=== PATIENT | female | born 1965 | race Two or more races ===

== ENCOUNTER 2022-04-07 19:26 | Emergency (ER) | payer OTHER ==
[~2022-04-07] VITALS: Ht 157.5 cm; Wt 72.7 kg
[2022-04-07 19:56] VITALS: BP 123/66
[2022-04-07 20:45] LABS: Basophils # (auto) 0 10 ^3/uL (0-0.2); Basophils % (auto) 0.3 % (0.0-2.0); Eosinophils # (auto) 0 10 ^3/uL (0-0.8); Eosinophils % (auto) 0.8 % (0.0-7.0); Hematocrit 41.2 % (36.0-46.0); Hemoglobin 13.6 g/dL (12.2-16.2); Lymphocytes # (auto) 2.3 10 ^3/uL (0.4-5.4); Lymphocytes % (auto) 41.9 % (10.0-50.0); Mean Corpuscular Hemoglobin 31.3 pg (28.0-32.0); Mean Corpuscular Hgb Conc. 33.1 g/dL (32.0-36.0); Mean Corpuscular Volume 94.5 fL (80.0-100.0); Monocytes # (auto) 0.3 10 ^3/uL (0-1.3); Monocytes % (auto) 5.2 % (0.0-12.0); Neutrophils # (auto) 2.8 10 ^3/uL (1.6-8.6); Neutrophils % (auto) 51.8 % (37.0-80.0); Nucleated Red Blood Cells % 0.1 %; Red Blood Cells 4.36 10^6/uL (4.0-5.20); Red Cell Distribution Width 13.2 % (11.8-14.3); White Blood Cell 5.5 10^3/uL (4.4-10.8)
[2022-04-07 20:59] LABS: Albumin 3.6 g/dL (3.4-5.0); BUN/Creatinine Ratio 13.2; Calcium 8.9 mg/dL (8.5-10.1); Magnesium 2.3 mg/dL (1.6-2.6); Potassium 3.7 mmol/L (3.5-5.1)
[2022-04-07 21:02] LABS: Bilirubin, Total 0.7 mg/dL (0.2-1.0); Total Protein 7.3 g/dL (6.4-8.2)
[2022-04-07 21:07] LABS: INR 1.03 (0.9-1.15); Partial Thromboplastin Time 29.9 sec (24.6-33.4)
== END 2022-04-07 23:04 | disposition home or self-care (01) ==
LOC: ER 19:26 → EDBD 19:26 → ER 23:04
DX: R07.89 Other chest pain (principal); I10 Essential (primary) hypertension
CPT/HCPCS: 36415; 71045; 80053; 83735; 83880; 84484; 85025; 85610; 85730; 93005

== ENCOUNTER 2022-08-21 21:19 | Inpatient (IN) | payer OTHER ==
[~2022-08-21] VITALS: Ht 167.6 cm; Wt 85.7 kg
[2022-08-21 21:46] LABS: Basophils # (auto) 0 10 ^3/uL (0-0.2); Basophils % (auto) 0.8 % (0.0-2.0); Eosinophils # (auto) 0.2 10 ^3/uL (0-0.8); Eosinophils % (auto) 4.3 % (0.0-7.0); Hematocrit 39.8 % (36.0-46.0); Hemoglobin 13.3 g/dL (12.2-16.2); Lymphocytes # (auto) 2.1 10 ^3/uL (0.4-5.4); Mean Corpuscular Hemoglobin 31.2 pg (28.0-32.0); Mean Corpuscular Hgb Conc. 33.4 g/dL (32.0-36.0); Mean Corpuscular Volume 93.4 fL (80.0-100.0); Monocytes # (auto) 0.3 10 ^3/uL (0-1.3); Monocytes % (auto) 5.6 % (0.0-12.0); Neutrophils # (auto) 2.2 10 ^3/uL (1.6-8.6); Neutrophils % (auto) 45.3 % (37.0-80.0); Nucleated Red Blood Cells % 0.1 %; Red Blood Cells 4.26 10^6/uL (4.0-5.20); White Blood Cell 4.8 10^3/uL (4.4-10.8)
[2022-08-21 22:06] LABS: Albumin 3.7 g/dL (3.4-5.0); Calcium 8.6 mg/dL (8.5-10.1); INR 0.96 (0.9-1.15); Magnesium 2.6 mg/dL (1.6-2.6); Partial Thromboplastin Time 27.5 sec (24.6-33.4); Potassium 3.9 mmol/L (3.5-5.1)
[2022-08-21 22:09] LABS: BUN/Creatinine Ratio 21.2 (10.0-20.0); Bilirubin, Total 0.5 mg/dL (0.2-1.0); Total Protein 7.3 g/dL (6.4-8.2)
[2022-08-22 00:36] LABS: Urine Bacteria NONE SEEN /hpf (None Seen); Urine Blood Negative /uL (Negative); Urine Specific Gravity 1.016 (1.001-1.035); Urine WBC 1 /hpf (0 - 5)
[2022-08-22] MEDS ORDERED: NITROGLYCERIN 0.4 MG SL TAB SL PRN (02:00)
[2022-08-22] MEDS ORDERED: DOCUSATE SOD 100 MG CAP PO PRN (02:00)
[2022-08-22] MEDS ORDERED: hydrALAZINE HCL 20 MG/ML VL IV PRN (02:00)
[2022-08-22] MEDS ORDERED: HYDROcodone-ACET 5/325MG TAB PO PRN (02:00)
[2022-08-22] MEDS ORDERED: ACETAMINOPHEN 325 MG TAB PO PRN (02:00)
[2022-08-22] MEDS ORDERED: MORPHINE SULFATE INJ 2 MG/ml SYRG IV PRN (02:00)
[2022-08-22] MEDS ORDERED: ONDANSETRON HCL 4 MG/2 ML VIAL IV PRN (02:00)
[2022-08-22 06:03] LABS: Basophils # (auto) 0 10 ^3/uL (0-0.2); Basophils % (auto) 0.6 % (0.0-2.0); Eosinophils # (auto) 0.3 10 ^3/uL (0-0.8); Hematocrit 38.3 % (36.0-46.0); Lymphocytes # (auto) 2.5 10 ^3/uL (0.4-5.4); Lymphocytes % (auto) 49.2 % (10.0-50.0); Mean Corpuscular Hemoglobin 31.9 pg (28.0-32.0); Mean Corpuscular Volume 93.7 fL (80.0-100.0); Monocytes # (auto) 0.3 10 ^3/uL (0-1.3); Monocytes % (auto) 6.7 % (0.0-12.0); Neutrophils % (auto) 38.5 % (37.0-80.0); Nucleated Red Blood Cells % 0.2 %; Red Blood Cells 4.09 10^6/uL (4.0-5.20); Red Cell Distribution Width 12.8 % (11.8-14.3); White Blood Cell 5.1 10^3/uL (4.4-10.8)
[2022-08-22] MEDS: SODIUM CHLOR 0.9% PF (SALINE LOCK) 10ML VIAL/SYR IV SCH ×3 (06:08→21:44)
[2022-08-22 06:24] LABS: Albumin 3.3 g/dL (3.4-5.0); BUN/Creatinine Ratio 15.7 (10.0-20.0); Calcium 8.5 mg/dL (8.5-10.1); Potassium 4.4 mmol/L (3.5-5.1)
[2022-08-22 06:26] LABS: Bilirubin, Total 0.7 mg/dL (0.2-1.0); Total Protein 6.7 g/dL (6.4-8.2)
[2022-08-22] MEDS ORDERED: ADENOSINE 67 MG in GIVE UN-DILUTED 0 ML IV ONE (08:00)
[2022-08-22] MEDS: FAMOTIDINE (10MG/ML) 2ML VL IV SCH (10:07)
[2022-08-22] MEDS: ASPirin 81 mg TAB PO SCH (10:07)
[2022-08-22 13:30] VITALS: BP 122/82
[2022-08-22] MEDS ORDERED: NITR0.4S29 SL (15:48)
[2022-08-22] MEDS ORDERED: LOSA25TA15 PO (15:48)
[2022-08-22] MEDS ORDERED: ASPI-543 PO (15:48)
[2022-08-22] MEDS ORDERED: PENI500T2 PO (15:48)
[2022-08-22 16:00] VITALS: BP 138/87
[2022-08-22 22:00] VITALS: BP 125/70
[2022-08-22] MEDS ORDERED: ATORVASTATIN 20 MG TAB PO SCH (22:00)
[2022-08-23 05:00] VITALS: BP 96/63
[2022-08-23 05:54] LABS: Albumin 3.2 g/dL (3.4-5.0); Calcium 8.7 mg/dL (8.5-10.1); Potassium 4.1 mmol/L (3.5-5.1)
[2022-08-23 05:56] LABS: BUN/Creatinine Ratio 23.4 (10.0-20.0)
[2022-08-23] MEDS: SODIUM CHLOR 0.9% PF (SALINE LOCK) 10ML VIAL/SYR IV SCH ×2 (06:00→15:13)
[2022-08-23 06:06] LABS: Basophils # (auto) 0 10 ^3/uL (0-0.2); Basophils % (auto) 0.2 % (0.0-2.0); Eosinophils # (auto) 0.2 10 ^3/uL (0-0.8); Eosinophils % (auto) 3.8 % (0.0-7.0); Hematocrit 37.8 % (36.0-46.0); Hemoglobin 12.8 g/dL (12.2-16.2); Lymphocytes # (auto) 2.2 10 ^3/uL (0.4-5.4); Lymphocytes % (auto) 48.5 % (10.0-50.0); Mean Corpuscular Hemoglobin 31.7 pg (28.0-32.0); Mean Corpuscular Hgb Conc. 33.8 g/dL (32.0-36.0); Mean Corpuscular Volume 93.8 fL (80.0-100.0); Monocytes # (auto) 0.2 10 ^3/uL (0-1.3); Monocytes % (auto) 5.5 % (0.0-12.0); Neutrophils # (auto) 1.9 10 ^3/uL (1.6-8.6); Nucleated Red Blood Cells % 0.1 %; Red Blood Cells 4.03 10^6/uL (4.0-5.20); Red Cell Distribution Width 12.7 % (11.8-14.3); White Blood Cell 4.5 10^3/uL (4.4-10.8)
[2022-08-23 06:07] LABS: Bilirubin, Total 0.9 mg/dL (0.2-1.0); Total Protein 6.8 g/dL (6.4-8.2)
[2022-08-23 08:15] VITALS: BP 123/63
[2022-08-23 09:00] VITALS: BP 123/63
[2022-08-23] MEDS: FAMOTIDINE (10MG/ML) 2ML VL IV SCH (10:35)
[2022-08-23] MEDS: ASPirin 81 mg TAB PO SCH (10:35)
[2022-08-23 13:00] VITALS: BP 123/73
[2022-08-23] MEDS ORDERED: MILK OF MAGNESIA 30ML SUSP PO ONE (15:30)
[2022-08-23] MEDS ORDERED: DOCUSATE SOD 100 MG CAP PO ONE (15:30)
[2022-08-23] MEDS ORDERED: LACTULOSE 20Gm/30ML SOLN PO ONE (15:30)
[2022-08-23 15:35] VITALS: BP 123/76
[2022-08-23 17:00] VITALS: BP 134/81
== END 2022-08-23 18:27 | disposition home or self-care (01) | DRG 313 ==
LOC: EDBD 21:19 → ER 21:26 → EEVIPCON 21:26 → TELE 08-22 01:56 → TELE-WESTW 08-22 12:45
PROVIDERS: ADMIT Nurse Practitioner Family; ATTEND Internal Medicine
DX: R07.9 Chest pain, unspecified (principal); R00.2 Palpitations; I10 Essential (primary) hypertension; I48.91 Unspecified atrial fibrillation
CPT/HCPCS: 36415; 71045; 78452; 80053; 81001; 83735; 83880; 84484; 85025; 85379; 85610; 85730; 93005; 93017; 93306; 96365; 96375; G0378; J0153; J3490

== ENCOUNTER 2022-10-13 23:38 | Inpatient (IN) | payer OTHER ==
[~2022-10-13] VITALS: Ht 165.1 cm; Wt 82.3 kg
[~2022-10-13 23:38] MED LIST: ASPI-543 PO; LOSA25TA15 PO; NITR0.4S29 SL; PENI500T2 PO
[2022-10-14 00:10] LABS: Basophils # (auto) 0 10 ^3/uL (0-0.2); Basophils % (auto) 0.3 % (0.0-2.0); Eosinophils # (auto) 0.2 10 ^3/uL (0-0.8); Eosinophils % (auto) 2.7 % (0.0-7.0); Hematocrit 39.7 % (36.0-46.0); Hemoglobin 13.2 g/dL (12.2-16.2); Lymphocytes # (auto) 2.5 10 ^3/uL (0.4-5.4); Mean Corpuscular Hemoglobin 31.3 pg (28.0-32.0); Mean Corpuscular Hgb Conc. 33.3 g/dL (32.0-36.0); Mean Corpuscular Volume 93.9 fL (80.0-100.0); Monocytes # (auto) 0.3 10 ^3/uL (0-1.3); Monocytes % (auto) 5.9 % (0.0-12.0); Neutrophils # (auto) 2.9 10 ^3/uL (1.6-8.6); Neutrophils % (auto) 49.1 % (37.0-80.0); Nucleated Red Blood Cells % 0.2 %; Red Blood Cells 4.23 10^6/uL (4.0-5.20); White Blood Cell 5.9 10^3/uL (4.4-10.8)
[2022-10-14 00:15] LABS: Albumin 3.6 g/dL (3.4-5.0); BUN/Creatinine Ratio 16.4 (10.0-20.0); Calcium 8.7 mg/dL (8.5-10.1); Magnesium 2.3 mg/dL (1.6-2.6); Potassium 3.9 mmol/L (3.5-5.1)
[2022-10-14 00:18] VITALS: PULSE 62; RESP 21; O2SAT 96
[2022-10-14 00:18] LABS: Bilirubin, Total 0.5 mg/dL (0.2-1.0); Total Protein 7.2 g/dL (6.4-8.2)
[2022-10-14 00:25] LABS: INR 1.11 (0.9-1.15); Partial Thromboplastin Time 28.7 SEC (24.5-34.5); Prothrombin Time 11.6 sec (9.3-11.8)
[2022-10-14 02:58] LABS: Urine Bacteria FEW /hpf (None Seen); Urine Blood Negative /uL (Negative); Urine Clarity Clear (Clear); Urine Color Yellow (Yellow); Urine Protein, UAD Negative (Negative); Urine Specific Gravity 1.016 (1.001-1.035); Urine Urobilinogen Normal (Negative); Urine WBC <1 /hpf (0 - 5); Urine pH 6.5 (5.0-8.0)
[2022-10-14] MEDS ORDERED: LACTATED RINGER'S 1,000 ML IV ONE (05:00)
[2022-10-14 07:45] VITALS: RESP 18; O2SAT 96
[2022-10-14] MEDS ORDERED: NITROGLYCERIN 0.4 MG SL TAB SL PRN ×2 (07:45→11:30)
[2022-10-14] MEDS ORDERED: IOHEXOL 350 MG/ML 100ML IJ ONE (08:03)
[2022-10-14] MEDS: PANTOPRAZOLE 40 MG TAB PO SCH (09:43)
[2022-10-14] MEDS: ASPirin 81 mg TAB PO SCH (09:43)
[2022-10-14] MEDS: LOSARTAN POTASSIUM 25 MG TAB PO SCH (09:43)
[2022-10-14] MEDS ORDERED: ATORVASTATIN 20 MG TAB PO SCH (10:00)
[2022-10-14] MEDS ORDERED: ENOXAPARIN SOD 80 MG/0.8ML SYRINGE SC SCH (10:00)
[2022-10-14] MEDS ORDERED: HYDROcodone-ACET 10/325MG TAB PO PRN (11:30)
[2022-10-14] MEDS ORDERED: ONDANSETRON HCL 4 MG/2 ML VIAL IV PRN (11:30)
[2022-10-14] MEDS ORDERED: MORPHINE SULFATE INJ 2 MG/ml SYRG IV PRN (11:30)
[2022-10-14 19:40] VITALS: RESP 20
[2022-10-14 22:00] VITALS: BP 105/69; TEMP 98.9; O2SAT 96
[2022-10-14 22:43] LABS: Erythrocyte Sedimentation Rate 14 mm/hr (0-20)
[2022-10-14 22:45] VITALS: PULSE 68; RESP 18; O2SAT 98
[2022-10-14] MEDS: ALBUTEROL SULF 2.5 MG/0.5ML(0.5%) NEB SOLN NEB SCH (22:45)
[2022-10-14] MEDS: BUDESONIDE (INHALATION) 0.5 MG/2 ML NEB NEB SCH (22:45)
[2022-10-14 22:53] VITALS: PULSE 70; RESP 18; O2SAT 100
[2022-10-14] MEDS: predniSONE 20 MG TAB PO SCH (23:06)
[2022-10-14] MEDS: MONTELUKAST SODIUM 10 MG TAB PO SCH (23:13)
[2022-10-15] VITALS (14 sets, daily range): BP systolic 96–150; BP diastolic 51–83; PULSE 54–92; RESP 16–19; TEMP 97.9–98.9; O2SAT 95–100
[2022-10-15] MEDS ORDERED: FAMO-12 PO (05:49)
[2022-10-15] MEDS ORDERED: ATOR10TA PO (05:49)
[2022-10-15] MEDS: BUDESONIDE (INHALATION) 0.5 MG/2 ML NEB NEB SCH ×2 (07:17→17:53)
[2022-10-15] MEDS: ALBUTEROL SULF 2.5 MG/0.5ML(0.5%) NEB SOLN NEB SCH ×3 (07:17→17:53)
[2022-10-15] MEDS ORDERED: ADENOSINE 68 MG in GIVE UN-DILUTED 0 ML IV ONE (07:45)
[2022-10-15] MEDS: LORATADINE 10 MG TAB PO SCH (09:45)
[2022-10-15] MEDS: ASPirin 81 mg TAB PO SCH (09:45)
[2022-10-15] MEDS: PANTOPRAZOLE 40 MG TAB PO SCH (09:45)
[2022-10-15] MEDS: LOSARTAN POTASSIUM 25 MG TAB PO SCH ×2 (09:46→10:19)
[2022-10-15] MEDS: ENOXAPARIN SOD 40 MG/0.4 ML SYRINGE SC SCH (09:47)
[2022-10-15] MEDS: predniSONE 20 MG TAB PO SCH ×2 (10:21→22:19)
[2022-10-15] MEDS: FLUTICASONE PROP NASAL SPR 0.05 % (50MCG) 16GM EACHNOSTRI SCH (11:00)
[2022-10-15] MEDS: ACETAMINOPHEN 325 MG TAB PO PRN ×2 (18:34→19:15)
[2022-10-15] MEDS: MONTELUKAST SODIUM 10 MG TAB PO SCH (22:19)
[2022-10-15] MEDS: DOCUSATE SOD 100 MG CAP PO SCH (22:23)
[2022-10-16] VITALS (9 sets, daily range): BP systolic 111–132; BP diastolic 69–86; PULSE 70–88; RESP 16–19; TEMP 97.6–98; O2SAT 94–100
[2022-10-16] MEDS: BUDESONIDE (INHALATION) 0.5 MG/2 ML NEB NEB SCH (06:18)
[2022-10-16] MEDS: ALBUTEROL SULF 2.5 MG/0.5ML(0.5%) NEB SOLN NEB SCH ×2 (06:20→14:33)
[2022-10-16] MEDS: FLUTICASONE PROP NASAL SPR 0.05 % (50MCG) 16GM EACHNOSTRI SCH (10:00)
[2022-10-16] MEDS: ASPirin 81 mg TAB PO SCH (11:45)
[2022-10-16] MEDS: DOCUSATE SOD 100 MG CAP PO SCH (11:45)
[2022-10-16] MEDS: LOSARTAN POTASSIUM 25 MG TAB PO SCH (11:45)
[2022-10-16] MEDS: PANTOPRAZOLE 40 MG TAB PO SCH (11:45)
[2022-10-16] MEDS: ENOXAPARIN SOD 40 MG/0.4 ML SYRINGE SC SCH (11:45)
[2022-10-16] MEDS: predniSONE 20 MG TAB PO SCH (11:45)
[2022-10-16] MEDS: LORATADINE 10 MG TAB PO SCH (11:45)
[2022-10-16] MEDS: ACETAMINOPHEN 325 MG TAB PO PRN (11:51)
[2022-10-16] MEDS ORDERED: ALBU0.084 IN (12:01)
[2022-10-16] MEDS ORDERED: FLUT250M2 INH (12:01)
[2022-10-16] MEDS ORDERED: PRED20TA2 PO (12:01)
[2022-10-16 14:06] LABS: Anti-Centromere B Antibody <0.2 AI (0.0-0.9); Anti-Jo-1 Antibody <0.2 AI (0.0-0.9); Anti-dsDNA Antibody <1 IU/mL (0-9); Antichromatin Antibody <0.2 AI (0.0-0.9); Antiscleroderma-70 Antibody <0.2 AI (0.0-0.9); RNP Antibody <0.2 AI (0.0-0.9); Sjogren's Anti-SS-A Antibody <0.2 AI (0.0-0.9); Sjogren's Anti-SS-B Antibody <0.2 AI (0.0-0.9); Smith Antibody <0.2 AI (0.0-0.9)
== END 2022-10-16 15:35 | DRG 313 ==
LOC: EDBD 23:38 → EEVIPCON 23:38 → ER 23:38 → TELE 10-14 11:30 → TELE-WESTW 10-14 22:48
PROVIDERS: ADMIT Internal Medicine; ATTEND Internal Medicine
DX: R07.89 Other chest pain (principal); J45.909 Unspecified asthma, uncomplicated; I95.9 Hypotension, unspecified; Z86.16 Personal history of COVID-19; I10 Essential (primary) hypertension; E78.5 Hyperlipidemia, unspecified; I48.91 Unspecified atrial fibrillation; R06.09 Other forms of dyspnea; Z79.82 Long term (current) use of aspirin; Z79.899 Other long term (current) drug therapy; Z82.49 Family history of ischemic heart disease and other diseases of the circulatory system; Z87.891 Personal history of nicotine dependence; Z88.1 Allergy status to other antibiotic agents; Z88.5 Allergy status to narcotic agent
CPT/HCPCS: 36415; 71045; 71275; 80053; 81001; 82533; 83516; 83735; 83880; 84443; 84484; 85025; 85610; 85652; 85730; 86141; 86225; 86235; 87081; 93005; 94640; 96360; 96361; 96372; G0378; J0153